=== PATIENT | female | born 1980 | race Caucasian/White ===

== ENCOUNTER → 2022-05-09 | Outpatient (CLI) | payer OTHER ==
[~2022-05-09] MED LIST: ABILIFY MYCITE20 MG PO; ABILIFY2 MG PO; CIPRO 500MG TA500 MG PO; COZAAR 25MG25 MG/TAB PO; EFFEXOR-XR150 MG PO; FLAGYL500 MG PO; FLEXERIL 1010 MG/TAB PO; IMITREX 25MG TA25 MG PO; KEFLEX750 MG; KLONOPIN 0.5MG0.5 MG; KLONOPIN 0.5MG0.5 MG PO; LAMICTAL150 MG PO; LIDODERM 5% PATC1 EA TP; MINIPRESS2 MG; NICODERM C21 MG/PATC TOP; NORCO 325 MG-51 TAB PO; NORETHINDRONE AC5 MG; PERCOCET 325 MG1 TA2 PO; PRILOTC; PRINIVIL10 MG PO; PRISTIQ100 MG PO; SEROQUEL 2525 MG/TAB PO; TRILEPTAL 300M300 MG PO; VALTREX 50500 MG/TAB PO; VITAMIN B121000 MC2 SL; VITAMIN D250 MCG PO; VITAMIN D32000 IU PO; WELLBUTRIN XL300 M1; ZOFRAN ODT4 MG PO; ZYRTEC ALLERGY10 MG PO; [UNRECOGNIZED DRUG - OTHER] IR
== END ==
LOC: COL.RAD 04-02 07:30
DX: G43.109 Migraine with aura, not intractable, without status migrainosus (principal)

== ENCOUNTER → 2022-06-27 | Outpatient (CLI) | payer OTHER | LOC: MC.RAD 07:41 | DX: Z12.31 Encounter for screening mammogram for malignant neoplasm of breast (principal); R92.8 Other abnormal and inconclusive findings on diagnostic imaging of breast ==

== ENCOUNTER → 2022-07-01 | Outpatient (CLI) | payer OTHER | LOC: MC.RAD 06:56 | DX: N64.89 Other specified disorders of breast (principal) ==

== ENCOUNTER 2023-03-08 17:33 | Emergency (ER) | payer OTHER ==
[~2023-03-08] VITALS: Ht 157.5 cm; Wt 97.7 kg
[2023-03-08 17:42] VITALS: TEMP 98.3
[2023-03-08 19:27] LABS: BASO % 0.4 % (0.0-2.0); EOS # 0.1 K/mm3 (0.0-0.7); EOS % 1.3 % (0.0-4.0); GRAN # 3.3 K/mm3 (1.4-6.5); GRAN % 69.3 % (42.2-75.2); HEMATOCRIT 37.8 % (37.0-47.0); HEMOGLOBIN 12.5 g/dl (12.5-16.0); LYMPH # 1.1 K/mm3 (1.2-3.4); LYMPH % 22.6 % (20.0-51.0); MEAN CELL VOLUME 95 fl (80.0-100.0); MEAN CORPUSCULAR HEMOGLOBIN 31 pg (27-31); MEAN CORPUSCULAR HGB CONC 33 g/dl (33.0-37.0); MEAN PLATELET VOLUME 12.1 fl (7.4-10.4); MONO # 0.3 K/mm3 (0.1-0.6); MONO % 6.2 % (1.7-9.3); PLATELET COUNT 212 K/mm3 (130-400); RED BLOOD COUNT 3.98 M/mm3 (4.10-5.30); REDCELL DISTRIBUTION WIDTH-CV 12.5 % (11.5-14.5)
[2023-03-08 19:35] LABS: ALBUMIN 3.3 gm/dL (3.5-5.0); C-REACTIVE PROTEIN 10.59 mg/dL (0.00-0.50); CALCIUM 8.7 mg/dL (8.4-10.2); CREATININE, serum 0.83 mg/dL (0.57-1.11); POTASSIUM 3.7 mmol/L (3.5-4.5); TOTAL PROTEIN 6.7 gm/dL (6.2-8.1)
[2023-03-08 19:54] LABS: COLLECTION METHOD CLEAN CATCH
[2023-03-08 20:13] LABS: URINE APPEARANCE Clear (CLEAR/HAZY); URINE BLOOD TRACE-INTACT (NEGATIVE); URINE COLOR Yellow (YELLOW); URINE GLUCOSE Negative (NEGATIVE); URINE KETONE 2+ (NEGATIVE); URINE NITRATE Negative (NEGATIVE); URINE PROTEIN(semi-quant) Negative (NEGATIVE)
[2023-03-08 20:14] LABS: SQUAMOUS EPITHELIAL 0-2 /hpf (0-10)
[2023-03-08 22:21] VITALS: BP 141/79; PULSE 67
== END 2023-03-08 22:32 | disposition home or self-care (01) ==
LOC: COL.ER 17:33
PROVIDERS: Nurse Practitioner
DX: G89.18 Other acute postprocedural pain (principal); R10.11 Right upper quadrant pain; K91.0 Vomiting following gastrointestinal surgery
CPT/HCPCS: J2270; J2405; J7030; Q9967

== ENCOUNTER 2023-05-10 19:45 | Emergency (ER) | payer OTHER ==
[~2023-05-10] VITALS: Ht 157.5 cm; Wt 82.7 kg
[2023-05-10 19:55] VITALS: TEMP 97.4
[2023-05-10] MEDS ORDERED: NS 1,000 ML IV ONE (20:00)
[2023-05-10] MEDS ORDERED: Ondansetron 4 MG/2 ML VIAL IV ONE (20:00)
[2023-05-10] MEDS ORDERED: HYDROmorphone 0.5 MG/0.5 ML SYRINGE IV ONE (20:15)
[2023-05-10 20:25] LABS: BASO % 0.5 % (0.0-2.0); EOS # 0.1 K/mm3 (0.0-0.7); EOS % 0.8 % (0.0-4.0); GRAN # 3.9 K/mm3 (1.4-6.5); GRAN % 62.8 % (42.2-75.2); HEMATOCRIT 39.3 % (37.0-47.0); HEMOGLOBIN 13.1 g/dl (12.5-16.0); LYMPH # 1.8 K/mm3 (1.2-3.4); LYMPH % 28.3 % (20.0-51.0); MEAN CELL VOLUME 94 fl (80.0-100.0); MEAN CORPUSCULAR HEMOGLOBIN 31 pg (27-31); MEAN CORPUSCULAR HGB CONC 33 g/dl (33.0-37.0); MONO # 0.5 K/mm3 (0.1-0.6); MONO % 7.6 % (1.7-9.3); PLATELET COUNT 240 K/mm3 (130-400); REDCELL DISTRIBUTION WIDTH-CV 12.6 % (11.5-14.5)
[2023-05-10 20:41] LABS: ALBUMIN 4.1 gm/dL (3.5-5.0); BILIRUBIN,TOTAL 0.4 mg/dL (0.2-1.2); C-REACTIVE PROTEIN 0.74 mg/dL (0.00-0.50); CALCIUM 9.6 mg/dL (8.4-10.2); CREATININE, serum 0.96 mg/dL (0.57-1.11); POTASSIUM 3.8 mmol/L (3.5-4.5); TOTAL PROTEIN 7.3 gm/dL (6.2-8.1)
[2023-05-10] MEDS ORDERED: Iohexol 300 - 100 ML VIAL IV ONE (21:11)
[2023-05-10] MEDS ORDERED: ZOFRAN ODT4 MG PO (22:37)
[2023-05-10 23:20] VITALS: BP 106/62; PULSE 53
== END 2023-05-10 23:21 | disposition home or self-care (01) ==
LOC: COL.ER 19:45
PROVIDERS: Emergency Medicine
DX: R10.13 Epigastric pain (principal); Z98.84 Bariatric surgery status; Z87.19 Personal history of other diseases of the digestive system
CPT/HCPCS: J1170; J2405; J7030; Q9967

== ENCOUNTER → 2023-07-23 | Outpatient (CLI) | payer OTHER | LOC: MC.RAD 06:58 | DX: Z12.31 Encounter for screening mammogram for malignant neoplasm of breast (principal) ==